=== PATIENT | female | born 1950 | race Caucasian/White ===

== ENCOUNTER 2018-02-08 13:02 | Day surgery (SDC) | payer MEDICARE, SELFPAY ==
--- NOTE | 2018-02-08 | PATH_ITS ---
[facility] Accession Number: [id number] . 01 Material submitted: . DESCENDING COLON POLYP . 02 Diagnosis: Descending Colon Polyp: Tubular adenoma. I/02/09/2018 . 02 Electronically signed: . Sheldon Lopez MD, PhD, Pathologist NPI- [id number] . 01 Gross description: . Received one formalin-filled container, labeled with the patient's name, labeled descending colon polyp. The specimen consists of a 0.3 cm portion of tissue, entirely submitted in one cassette. ([id number]) /FRR . 02 Pathologist provided ICD-10: D12.4 . 02 CPT . 337395 Performed at: 01 [facility] [place] [address] [id number] MD Pilo Moe MD Phone: [phone] Performed at: 02 [facility] [place] [address] [place], [place] [id number] MD Marco Alexis MD Phone: [phone]
[2018-02-08 13:27] VITALS: BP 137/77; PULSE 68; RESP 15; TEMP 36; O2SAT 99; BMI 22.7
[2018-02-08] MEDS: SODIUM CHLORIDE 0.9% 1,000 ML 70 ML IV (13:47)
--- NOTE | 2018-02-08 13:55 | PM.HP.1 ---
History of Present Illness Chief complaint: [id number] Narrative: 67-year-old female history of colon polyps here for a primary colonoscopy for polyp surveillance. The patient had a prior colonoscopy around 8 years ago at [facility] but was unable to return for surveillance. She has no alarm symptoms such as GI bleeding, weight loss, or persistent vomiting Patient History Family & Social History Social History: household members none Meds Home Medications Medication Instructions Recorded Confirmed Type doxycycline hyclate 100 mg PO DAILY 02/08/18 02/08/18 History latanoprost [Xalatan] 1 drp EYE-BOTH DAILY 02/08/18 02/08/18 History Allergies Allergy/AdvReac Type Severity Reaction Status Date / Time No Known Drug Allergies Allergy Verified 02/08/18 13:21 Exam Vital Signs (past 8 hours): Vital Signs - 8 hr 02/08/18 13:27 Temperature 96.8 F L Pulse Rate 68 Respiratory Rate 15 Blood Pressure 137/77 H Pulse Oximetry 99 Pulse Oximetry 99 Oxygen Delivery Method Room Air Narrative Exam Narrative: General: Patient is well developed, not in apparent distress Cardiovascular: Regular rate and rhythm, no murmurs, rubs, or gallops; no evidence of edema; no palpable abdominal aortic aneurysm Gastrointestinal: Normoactive bowel sounds, soft, nontender, nondistended, no rebound tenderness, no hepatosplenomegaly, no evidence of hernia Assessment & Plan Plan: Assessment/Plan Narrative: 67-year-old female here for polyp surveillance
--- NOTE | 2018-02-08 14:30 | PM.OP.ENDO ---
Operative Date/Time/Diagnoses - Date of procedure: 02/08/18 Time of procedure: 14:47 Procedure Notes Procedure in detail: Surgeon: Mateo Ernandez MD Procedure: Colonoscopy with Polypectomy Preoperative diagnosis: Colon polyp surveillance; last colonoscopy more than 5 years ago Postoperative diagnosis: Descending colon polyp status post polypectomy Medications: Conscious sedation using 6 mg IV of Midazolam and 100 6 mcg IV of Fentanyl Preanesthesia Assessment An H and P was performed/updated and the Px?s ASA class is 2. The procedure was discussed in detail with the patient. The potential risks and complications including infection, bleeding, missed lesions, perforation, need for surgery in case of perforation, prolonged hospital stay, and were explained. A brief question and answer period was allotted and once all questions were answered, informed consent was obtained. The patient was brought back to the procedure room and placed on standard monitoring. The patient?s vital signs were monitored continuously throughout the entire procedure. Prior to starting, a timeout was performed to confirm the patient?s identity, allergies, medications, and procedure. Procedure in detail The patient was placed in left lateral decubitus position and once adequate sedation was obtained a JESSICA was performed. The digital rectal examination did not reveal any palpable lesions. The tip of the colonoscope was placed in the anal canal and advanced without difficulty all the way to the cecum which was identified by the appendiceal orifice and ileocecal valve. Careful examination of all bean of the colon was performed with irrigation of any residual stool. In the descending colon there was note of a 3 mm sessile polyp which was removed in its entirety by means of a cold Jumbo forceps with minimal bleeding. Further examination of the colon revealed no other mucosal lesions. Retroflexion was performed in the rectum which revealed grade 1 internal hemorrhoids. The procedure was then terminated The patient tolerated the procedure well and will be brought back to the recovery area to be discharged once criteria are met. The prep was judged to be good/excellent and adequate to identify polyps less than 5 mm. The withdrawal time was 10 min. The total procedure time from initial sedation was 20 min. Complications There were no complications and estimated blood loss was minimal. Recommendations: Resume previous diet Continue outPx medications Follow up pathology results Repeat colonoscopy in five years for polyp surveillance An emergency contact number was given to the patient for any complications related to the procedure
--- NOTE | 2018-02-08 14:31 | P.DS_ITS ---
History of Present Illness Chief complaint: [id number] Narrative: 67-year-old female history of colon polyps here for a primary colonoscopy for polyp surveillance. The patient had a prior colonoscopy around 8 years ago at [facility] but was unable to return for surveillance. She has no alarm symptoms such as GI bleeding, weight loss, or persistent vomiting Discharge Providers Discharge provider: Mateo Ernandez MD Exam Vital Signs (past 8 hours): Vital Signs - 8 hr 3 02/08/18 13:27 Temperature 96.8 F L Pulse Rate 68 Respiratory Rate 15 Blood Pressure 137/77 H Pulse Oximetry 99 Pulse Oximetry 99 Oxygen Delivery Method Room Air Narrative Exam Narrative: General: Patient is well developed, not in apparent distress Cardiovascular: Regular rate and rhythm, no murmurs, rubs, or gallops; no evidence of edema; no palpable abdominal aortic aneurysm Gastrointestinal: Normoactive bowel sounds, soft, nontender, nondistended, no rebound tenderness, no hepatosplenomegaly, no evidence of hernia Discharge Plan Discharge Plan Patient Disposition: Home, Self-Care Discharge comment: Remove IV prior to discharge Discharge to home once criteria are met (positive flatus, stable vital signs, no abdominal pain, tolerating p.o.) Discharge Med Rec/Prescriptions Prescriptions: Continue latanoprost [Xalatan] 0.005 % Drops 1 drp EYE-BOTH DAILY RF: 0 doxycycline hyclate 100 mg Capsule 100 mg PO DAILY RF: 0 Discharge Orders: Discharge (Order); Ordered 02/08/18 Ordered By: Mateo Ernandez Provider Discharge Instructions Diet: Diet as Tolerated Visit Report/Discharge Packet Stand Alone Forms: Surgery Discharge Discharge Data Attending Provider: Mateo Ernandez
[2018-02-08] MEDS: MIDAZOLAM 5 MG/5 ML VIAL IV (14:57)
[2018-02-08] MEDS: fentaNYL 250 MCG/5 ML INJ IV (14:57)
[2018-02-08 15:21] VITALS: BP 119/80; PULSE 75; RESP 15; TEMP 36.3; O2SAT 98
== END 2018-02-08 15:33 | disposition home or self-care (01) ==
PROVIDERS: Visit Provider Internal Medicine Gastroenterology
PROC: 0DJD8ZZ Inspection of Lower Intestinal Tract, Via Natural or Artificial Opening Endoscopic (ICD-10-PCS; CPT 45378; principal; 2018-02-08 14:30)
DX: Z12.11 Encounter for screening for malignant neoplasm of colon (principal); D12.4 Benign neoplasm of descending colon; K64.0 First degree hemorrhoids
CPT/HCPCS: 45380; J2250; J3010